=== PATIENT | male | born 1960 | race Caucasian/White ===

== ENCOUNTER 2018-08-30 19:07 | Emergency (ER) | payer OTHER ==
[~2018-08-30] VITALS: Ht 160 cm; Wt 68.0 kg
[2018-08-30 19:15] VITALS: Ht 160 cm; Wt 68.0 kg
[2018-08-30 21:45] VITALS: BP 159/98
== END 2018-08-30 21:45 | disposition home or self-care (01) ==
LOC: ED 19:07
DX: L40.9 Psoriasis, unspecified (principal); R21 Rash and other nonspecific skin eruption; F10.20 Alcohol dependence, uncomplicated

== ENCOUNTER 2020-11-14 15:43 | Inpatient (IN) | payer OTHER ==
[~2020-11-14] VITALS: Ht 167.6 cm; Wt 60.8 kg
[2020-11-14 16:19] VITALS: Ht 167.6 cm; Wt 60.8 kg
[2020-11-14 16:54] LABS: PLATELET COUNT 109 x10^3mcL (152-348); RED CELL DISTRIBUTION WIDTH 16.5 % (12.1-16.2)
[2020-11-14 17:20] LABS: CALCIUM 7.7 mg/dL (8.5-10.1); CHLORIDE SERUM 95 mmol/L (98-107); CREATININE SERUM 0.9 mg/dL (0.7-1.3); GFR1 > 60 mL/min; GLUCOSE SERUM 121 mg/dL (74-106); POTASSIUM SERUM 3.5 mmol/L (3.5-5.1); SODIUM SERUM 127 mmol/L (136-145)
[2020-11-14 17:25] LABS: ALKALINE PHOSPHATASE 177 U/L (46-116); ALT/SGPT 27 U/L (16-63); AST/SGOT 45 U/L (15-37); BILIRUBIN TOTAL 1.51 mg/dL (0.20-1.00); LIPASE 115 IU/L (73-393); TOTAL PROTEIN, SERUM 6.8 g/dL (6.4-8.2)
[2020-11-14 17:26] LABS: ALBUMIN 1.8 g/dL (3.4-5.0)
[2020-11-14 17:30] LABS: BAND NEUTROPHIL 4 % (0-10); METAMYELOCTE 4 % (0-2); MONOCYTE 4 % (0-7); SEGMENTED NEUTROPHILS 79 % (37-75)
[2020-11-14 17:31] LABS: PLATELET MORPHOLOGY PLATELETS DECREASED; rbc morphology (normal/abnorm) NORMAL (NORMAL)
[2020-11-14 17:40] LABS: microscopic required? YES; urine erythrocyte 2+ (NEGATIVE)
[2020-11-14 17:50] LABS: AMPHETAMINE QUAL UR NONE DETECTED (See below)
[2020-11-15 01:40] VITALS: BP 123/53
[2020-11-15 05:25] VITALS: BP 121/59
[2020-11-15 08:11] LABS: BASOPHIL % 0.7 % (0.2-1.5)
[2020-11-15 08:22] LABS: PLATELET COUNT 99 x10^3mcL (152-348); RED CELL DISTRIBUTION WIDTH 16.5 % (12.1-16.2)
[2020-11-15 08:45] LABS: ALKALINE PHOSPHATASE 136 U/L (46-116); ALT/SGPT 27 U/L (16-63); AST/SGOT 37 U/L (15-37); BILIRUBIN TOTAL 1.2 mg/dL (0.20-1.00); CALCIUM 8.1 mg/dL (8.5-10.1); CARBON DIOXIDE 25.9 mmol/L (21-32); CHLORIDE SERUM 108 mmol/L (98-107); CREATININE SERUM 0.6 mg/dL (0.7-1.3); GFR1 > 60 mL/min; GLUCOSE SERUM 77 mg/dL (74-106); MAGNESIUM 1.9 mg/dL (1.8-2.4); POTASSIUM SERUM 3.5 mmol/L (3.5-5.1); SODIUM SERUM 142 mmol/L (136-145); TOTAL PROTEIN, SERUM 6.6 g/dL (6.4-8.2)
[2020-11-15 08:46] LABS: ALBUMIN 2.1 g/dL (3.4-5.0)
[2020-11-15 08:54] VITALS: BP 119/57
[2020-11-15 09:02] LABS: rbc morphology (normal/abnorm) ABNORMAL (NORMAL)
[2020-11-15 12:12] VITALS: BP 104/55
[2020-11-15 16:06] VITALS: BP 144/68
[2020-11-15 20:55] VITALS: BP 114/57
[2020-11-16 05:20] VITALS: BP 112/55
[2020-11-16 07:31] LABS: BASOPHIL % 1.8 % (0.2-1.5)
[2020-11-16 07:46] LABS: PLATELET COUNT 105 x10^3mcL (152-348); RED CELL DISTRIBUTION WIDTH 16.1 % (12.1-16.2)
[2020-11-16 07:56] LABS: ALKALINE PHOSPHATASE 115 U/L (46-116); ALT/SGPT 21 U/L (16-63); AST/SGOT 30 U/L (15-37); BILIRUBIN TOTAL 0.7 mg/dL (0.20-1.00); CALCIUM 7.8 mg/dL (8.5-10.1); CARBON DIOXIDE 23.6 mmol/L (21-32); CHLORIDE SERUM 109 mmol/L (98-107); CREATININE SERUM 0.5 mg/dL (0.7-1.3); GFR1 > 60 mL/min; GLUCOSE SERUM 81 mg/dL (74-106); MAGNESIUM 1.7 mg/dL (1.8-2.4); POTASSIUM SERUM 3.2 mmol/L (3.5-5.1); SODIUM SERUM 141 mmol/L (136-145)
[2020-11-16 07:57] LABS: ALBUMIN 2.3 g/dL (3.4-5.0); TOTAL PROTEIN, SERUM 6.1 g/dL (6.4-8.2)
[2020-11-16 08:30] VITALS: BP 107/50
[2020-11-16 13:00] VITALS: BP 124/82
[2020-11-16 17:13] VITALS: BP 138/65
[2020-11-16 21:37] VITALS: BP 131/63
[2020-11-17 06:31] VITALS: BP 111/56
[2020-11-17 07:55] LABS: BASOPHIL % 0.5 % (0.2-1.5)
[2020-11-17 08:01] LABS: PLATELET COUNT 112 x10^3mcL (152-348); RED CELL DISTRIBUTION WIDTH 16.2 % (12.1-16.2)
[2020-11-17 08:13] LABS: ALKALINE PHOSPHATASE 119 U/L (46-116); ALT/SGPT 23 U/L (16-63); AST/SGOT 31 U/L (15-37); BILIRUBIN TOTAL 0.95 mg/dL (0.20-1.00); CALCIUM 7.8 mg/dL (8.5-10.1); CHLORIDE SERUM 107 mmol/L (98-107); CREATININE SERUM 0.5 mg/dL (0.7-1.3); GFR1 > 60 mL/min; GLUCOSE SERUM 81 mg/dL (74-106); MAGNESIUM 1.6 mg/dL (1.8-2.4); POTASSIUM SERUM 3.6 mmol/L (3.5-5.1); SODIUM SERUM 138 mmol/L (136-145)
[2020-11-17 08:15] LABS: ALBUMIN 2.1 g/dL (3.4-5.0); TOTAL PROTEIN, SERUM 6.1 g/dL (6.4-8.2)
[2020-11-17 08:24] VITALS: BP 104/49
[2020-11-17 12:20] VITALS: BP 97/47
[2020-11-18 05:40] VITALS: BP 105/55
[2020-11-18 07:31] LABS: BASOPHIL % 1.2 % (0.2-1.5)
[2020-11-18 08:10] LABS: ALKALINE PHOSPHATASE 121 U/L (46-116); ALT/SGPT 22 U/L (16-63); AST/SGOT 30 U/L (15-37); BILIRUBIN TOTAL 0.8 mg/dL (0.20-1.00); CARBON DIOXIDE 26.3 mmol/L (21-32); CHLORIDE SERUM 110 mmol/L (98-107); GFR1 > 60 mL/min; GLUCOSE SERUM 82 mg/dL (74-106); MAGNESIUM 1.6 mg/dL (1.8-2.4); POTASSIUM SERUM 3.7 mmol/L (3.5-5.1); SODIUM SERUM 143 mmol/L (136-145)
[2020-11-18 08:13] LABS: ALBUMIN 1.9 g/dL (3.4-5.0); TOTAL PROTEIN, SERUM 5.9 g/dL (6.4-8.2)
[2020-11-18 08:16] VITALS: BP 110/57
[2020-11-18 08:57] LABS: PLATELET COUNT 120 x10^3mcL (152-348); RED CELL DISTRIBUTION WIDTH 16.8 % (12.1-16.2)
[2020-11-18 08:59] LABS: rbc morphology (normal/abnorm) NORMAL (NORMAL)
[2020-11-18 12:13] VITALS: BP 107/60
[2020-11-18 16:11] VITALS: BP 112/59
[2020-11-18 22:08] VITALS: BP 123/51
[2020-11-19 05:55] VITALS: BP 114/53
[2020-11-19 08:31] LABS: BASOPHIL % 1.1 % (0.2-1.5)
[2020-11-19 08:42] VITALS: BP 108/46
[2020-11-19 09:30] LABS: PLATELET COUNT 122 x10^3mcL (152-348); RED CELL DISTRIBUTION WIDTH 16.9 % (12.1-16.2)
[2020-11-19 09:48] LABS: ALBUMIN 1.9 g/dL (3.4-5.0); ALKALINE PHOSPHATASE 121 U/L (46-116); ALT/SGPT 20 U/L (16-63); AST/SGOT 24 U/L (15-37); BILIRUBIN TOTAL 0.81 mg/dL (0.20-1.00); CARBON DIOXIDE 25.6 mmol/L (21-32); CHLORIDE SERUM 108 mmol/L (98-107); CREATININE SERUM 0.5 mg/dL (0.7-1.3); GFR1 > 60 mL/min; GLUCOSE SERUM 84 mg/dL (74-106); MAGNESIUM 1.7 mg/dL (1.8-2.4); POTASSIUM SERUM 3.6 mmol/L (3.5-5.1); SODIUM SERUM 139 mmol/L (136-145)
[2020-11-19 12:08] VITALS: BP 99/50
[2020-11-19 13:15] LABS: rbc morphology (normal/abnorm) NORMAL (NORMAL)
[2020-11-19 16:26] VITALS: BP 115/50
== END 2020-11-19 21:16 | disposition home health service (06) | DRG 720 ==
LOC: ED 15:43 → DU 19:48 → MU 11-18 00:51 → DU 11-18 12:58
PROVIDERS: Emergency Medicine; ADMIT Hospitalist; ATTEND Internal Medicine
DX: A41.9 Sepsis, unspecified organism (principal); E87.1 Hypo-osmolality and hyponatremia; N39.0 Urinary tract infection, site not specified; Z20.822 Contact with and (suspected) exposure to COVID-19; E86.0 Dehydration; Z82.49 Family history of ischemic heart disease and other diseases of the circulatory system; F10.20 Alcohol dependence, uncomplicated; Y90.9 Presence of alcohol in blood, level not specified; I35.8 Other nonrheumatic aortic valve disorders; I35.1 Nonrheumatic aortic (valve) insufficiency; I10 Essential (primary) hypertension
CPT/HCPCS: 90658; 97110-GP; 97116-GP; 97530-GP; G0378; J0696; J1644; J2270; J2405; J3370; J7030; J7060; P9047